=== PATIENT | male | born 1990 | race Caucasian/White ===

== ENCOUNTER 2018-10-18 17:32 | Outpatient (CLI) | payer MEDICAID ==
--- NOTE | 2018-10-19 02:09 | Ultrasound Report ---
Reason: DIARRHEA,ACUTE, ABDOMINAL PAIN,RIGHT UPPER QUADRAN Procedure Date: 10/18/2018 Accession Number: [id number] / [id number] Procedure: US - Abdomen Limited CPT Code: FULL RESULT: EXAM: ABDOMEN ULTRASOUND LIMITED, RUQ EXAM DATE: 10/18/2018 06:25 PM. CLINICAL HISTORY: DIARRHEA,ACUTE, ABDOMINAL PAIN,RIGHT UPPER QUADRANT. COMPARISON: None. TECHNIQUE: Real-time scanning was performed with static images obtained. FINDINGS: Liver: Normal in size and echotexture. 16.2 cm. Main portal vein flow: Hepatopetal. Gallbladder: Normal. No stones, wall thickening, or sonographic Cowan's sign. Biliary System: CBD measures 3.3 mm. No intrahepatic or extrahepatic ductal dilatation. Pancreas: Not well seen. Right kidney: 9.2 cm. No hydronephrosis. Abdominal aorta and IVC: Normal. Other: None. IMPRESSION: Normal. No cholelithiasis or cholecystitis. RADIA
== END 2018-10-18 17:33 | disposition home or self-care (01) ==
LOC: DI 17:32
PROVIDERS: ATTEND Physician Assistant Medical
DX: R19.7 Diarrhea, unspecified (principal); R10.11 Right upper quadrant pain
CPT/HCPCS: 76705

== ENCOUNTER 2018-10-23 17:15 | Outpatient (CLI) | payer MEDICAID | END 2018-10-23 23:59 | disposition home or self-care (01) | LOC: LAB.R 17:15 | PROVIDERS: ATTEND Physician Assistant Medical | DX: R10.13 Epigastric pain (principal) | CPT/HCPCS: 83013 ==

== ENCOUNTER 2018-12-10 14:14 | Outpatient (CLI) | payer MEDICAID ==
[2018-12-10] MEDS ORDERED: IOVERSOL 320 100 ML VIAL IVP ONE (14:29)
[2018-12-10] MEDS ORDERED: IOVERSOL 320 50 ML VIAL ONE (14:29)
[2018-12-10] MEDS: IOVERSOL 320 50 ML VIAL PO ONE (15:37)
[2018-12-10] MEDS: IOVERSOL 320 100 ML VIAL IVP ONE (15:47)
--- NOTE | 2018-12-11 10:36 | CT Report ---
Reason: CONSTIPATION, LUQ MASS SWELLING OR LUMP Procedure Date: 12/10/2018 Accession Number: [id number] / [id number] Procedure: CT - Abdomen/Pelvis W/ CPT Code: FULL RESULT: EXAM: CT ABDOMEN AND PELVIS EXAM DATE: 12/10/2018 03:40 PM. CLINICAL HISTORY: Constipation, left upper quadrant mass swelling or lump. COMPARISONS: ABD/PEL 08/09/2007 8:28 PM. TECHNIQUE: Routine helical CT imaging was performed through the abdomen and pelvis. IV contrast: 90 ML OPTIRAY 320. Enteric contrast: Yes. Reconstructions: Coronal and sagittal. In accordance with CT protocol optimization, one or more of the following dose reduction techniques were utilized for this exam: automated exposure control, adjustment of mA and/or KV based on patient size, or use of iterative reconstructive technique. FINDINGS: Lung Bases: Unremarkable. Liver: Normal. No masses. Gallbladder/Bile Ducts: Unremarkable. Spleen: Normal. Pancreas: Normal. Adrenal Glands: Normal. Kidneys: Normal. No masses or hydronephrosis. Peritoneal Cavity/Bowel: The stomach is prominently distended in the left upper quadrant. The sigmoid colon is redundant in the left pelvis. Moderate stool burden is seen filling the colon. No free fluid, free air or adenopathy. No masses or acute inflammatory process. Pelvic Organs: Normal. The bladder and visualized pelvic organs are within normal limits. Vasculature: No aneurysms or other significant abnormality. Bones: No significant abnormality. Other: None. IMPRESSION: Moderate colonic stool burden with redundant sigmoid colon. Prominently distended stomach with no suspicious mass identified. RADIA
== END 2018-12-10 14:15 | disposition home or self-care (01) ==
LOC: DI 14:14
PROVIDERS: ATTEND Physician Assistant Medical
DX: K31.89 Other diseases of stomach and duodenum (principal); K59.00 Constipation, unspecified; R19.02 Left upper quadrant abdominal swelling, mass and lump; R10.13 Epigastric pain; R19.7 Diarrhea, unspecified; R10.11 Right upper quadrant pain
CPT/HCPCS: 74177; Q9967

== ENCOUNTER 2019-09-10 14:43 | Outpatient (CLI) | payer MEDICAID ==
[2019-09-10 19:03] LABS: BASOPHILS # (AUTO) 0.1 10^3/uL (0.0-0.1); EOSINOPHILS # (AUTO) 0.1 10^3/uL (0.0-0.7); EOSINOPHILS % (AUTO) 2.8 %; HGB - HEMOGLOBIN 15.4 g/dL (14.0-18.0); LYMPHOCYTES # (AUTO) 1.6 10^3/uL (1.5-3.5); LYMPHOCYTES % (AUTO) 31.3 %; MEAN CORPUSCULAR HEMOGLOBIN 30.2 pg (27.0-31.0); MEAN CORPUSCULAR HGB CONC 34.7 g/dL (32.0-36.0); MEAN CORPUSCULAR VOLUME 87.1 fL (80.0-94.0); MEAN PLATELET VOLUME 10.7 fL (7.4-11.4); MONOCYTES # (AUTO) 0.6 10^3/uL (0.0-1.0); MONOCYTES % (AUTO) 11.4 %; NEUTROPHILS # (AUTO) 2.7 10^3/uL (1.5-6.6); NEUTROPHILS % (AUTO) 53.3 %; PLT - PLATELET COUNT 297 10^3/uL (130-450); RED CELL DISTRIBUTION WIDTH 12.5 % (12.0-15.0)
[2019-09-10 19:30] LABS: ALBUMIN/GLOBULIN RATIO 1.5 (1.0-2.2); ALKALINE PHOSPHATASE 56 IU/L (42-121); ALT ALANINE AMINOTRANSFERASE 18 IU/L (10-60); AMYLASE 36 U/L (28-100); AST ASPARTATE AMINOTRANSFERASE 16 IU/L (10-42); BILIRUBIN,TOTAL 0.7 mg/dL (0.2-1.0); BUN - BLOOD UREA NITROGEN 11 mg/dL (6-20); CALCIUM 9.6 mg/dL (8.5-10.3); CARBON DIOXIDE - CO2 24 mmol/L (21-32); CHLORIDE 105 mmol/L (101-111); GFR - MDRD 90 (>89); GLUCOSE 111 mg/dL (70-100); LIPASE 25 U/L (22-51); SODIUM 136 mmol/L (135-145); TOTAL PROTEIN 8.3 g/dL (6.7-8.2)
[2019-09-10 19:31] LABS: CRP - C-REACTIVE PROTEIN < 1.0 mg/dL (0-1.0)
[2019-09-11 12:44] LABS: HEPATITIS C ANTIBODY NON-REACTIVE (NON-REACTIVE)
[2019-09-17 09:01] LABS: ANA SCREEN NEGATIVE (NEGATIVE)
== END 2019-09-10 23:59 | disposition home or self-care (01) ==
LOC: LAB.N 14:43
PROVIDERS: ATTEND Physician Assistant Medical
DX: R63.4 Abnormal weight loss (principal); R04.2 Hemoptysis; R10.11 Right upper quadrant pain
CPT/HCPCS: 36415; 80050; 82150; 82306; 83690; 85651; 86038; 86140; 86200; 86803

== ENCOUNTER 2019-09-10 14:56 | Outpatient (CLI) | payer MEDICAID ==
--- NOTE | 2019-09-11 16:40 | XRAY Report ---
Reason: HEMOPTYSIS Procedure Date: 09/11/2019 Accession Number: [id number] / [id number] Procedure: XRN - Chest 2 View X-Ray CPT Code: 79138 Final Report FULL RESULT: EXAM: CHEST RADIOGRAPHY EXAM DATE: 09/11/2019 03:56 PM. CLINICAL HISTORY: HEMOPTYSIS. COMPARISON: CHEST 2 VIEW PA/LAT 11/10/2015 3:44 PM. TECHNIQUE: 2 views. FINDINGS: Lungs/Pleura: No focal opacities evident. No pleural effusion. No pneumothorax. Normal volumes. Mediastinum: Heart and mediastinal contours are unremarkable. Other: None. IMPRESSION: No acute cardiopulmonary abnormality. RADIA
== END 2019-09-10 14:57 | disposition home or self-care (01) ==
LOC: DI.N 14:56
PROVIDERS: ATTEND Physician Assistant Medical
DX: R04.2 Hemoptysis (principal); R63.4 Abnormal weight loss
CPT/HCPCS: 71046

== ENCOUNTER 2019-09-26 08:00 | Outpatient (CLI) | payer MEDICAID ==
[2019-09-26 19:10] LABS: ALKALINE PHOSPHATASE 61 IU/L (42-121); ALT ALANINE AMINOTRANSFERASE 25 IU/L (10-60); AST ASPARTATE AMINOTRANSFERASE 22 IU/L (10-42); BILIRUBIN,TOTAL 0.7 mg/dL (0.2-1.0); TOTAL PROTEIN 8.4 g/dL (6.7-8.2)
[2019-09-26 19:18] LABS: BILIRUBIN,DIRECT < 0.1 mg/dL (0.1-0.5)
[2019-09-26 19:24] LABS: HB2 TOTAL 16.1 g/dL; HEMOGLOBIN A1C 0.55 g/dL; HEMOGLOBIN A1C % 5.3 % (4.6-6.2)
[2019-09-27 14:17] LABS: HEPATITIS B SURFACE ANTIGEN NON-REACTIVE (NON-REACTIVE)
== END 2019-09-26 23:59 | disposition home or self-care (01) ==
LOC: LAB.N 08:00
PROVIDERS: ATTEND Physician Assistant Medical
DX: R10.11 Right upper quadrant pain (principal); R63.4 Abnormal weight loss; R04.2 Hemoptysis; R10.13 Epigastric pain; R19.7 Diarrhea, unspecified
CPT/HCPCS: 36415; 80076; 83036; 86317; 86709; 87340

== ENCOUNTER 2019-09-30 07:00 | Outpatient (CLI) | payer MEDICAID | END 2019-09-30 23:59 | disposition home or self-care (01) | LOC: LAB.R 07:00 | PROVIDERS: ATTEND Physician Assistant Medical | DX: R63.4 Abnormal weight loss (principal); R04.2 Hemoptysis; R10.13 Epigastric pain; R19.7 Diarrhea, unspecified | CPT/HCPCS: 83630; 87045; 87046; 87177; 87209; 87493 ==